=== PATIENT | female | born 1985 | race Two or more races ===

== ENCOUNTER 2017-10-14 18:46 | Emergency (ER) | payer OTHER ==
[2017-10-14] MEDS ORDERED: LORazepam 0.5 MG TABLET PO STA (19:12)
[2017-10-14] MEDS ORDERED: LORazepam 0.5 MG TABLET ONE (19:23)
[2017-10-14 19:53] VITALS: BP 134/81
--- NOTE | 2017-10-14 19:54 | ED Physician Documentation ---
History of Present Illness - Stated complaint Stated Complaint: neck pain - Chief complaint Chief Complaint: Heent - History obtained from History obtained from: Patient (pt is here for evaluation after she states she was laying on her stonach on the bed and felt a "pop" on the left side of her neck that she states was only slightly painful. she states that since then she has had a horse voice and a spike in her anxiety.) Review of Systems Constitutional: denies: Fever, Chills Ears: denies: Loss of hearing, Ear pain, Tinnitus/ringing Throat: reports: Other ("pop" on left side of throat). 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 HEENT: Other - Present Medications Home Medications: Ambulatory Orders Medication Instructions Recorded Confirmed Ibuprofen [Motrin] 400 mg PO Q6H PRN #30 tablet 05/11/16 10/14/17 raNITIdine HCl [Ranitidine HCl] 150 mg ORAL BID PRN 05/11/16 10/14/17 predniSONE [Prednisone] 60 mg PO DAILY #6 tablet 10/14/17 - Allergies Allergies/Adverse Reactions: Allergies Allergy/AdvReac Type Severity Reaction Status Date / Time Cephalosporins Allergy Itching Verified 10/14/17 18:56 ciprofloxacin [From Cipro] Allergy Unknown Verified 10/14/17 18:56 ciprofloxacin HCl * Allergy Unknown Verified 10/14/17 18:56 [From Cipro] phenazopyridine Allergy Unknown Verified 10/14/17 18:56 [Phenazopyridine] - Social History Does the pt smoke?: No Smoking Status: Former smoker Does the pt drink ETOH?: Yes Does the pt have substance abuse?: No - Immunizations Immunizations are current?: Yes - POLST Patient has POLST: No PD ED PE NORMAL - Vitals Vital signs reviewed: Yes - General General: Alert and oriented X 3, No acute distress, Well developed/nourished - HEENT HEENT: Atraumatic, Moist mucous membranes, Pharynx benign - Neck Neck: Supple, no meningeal sign, No bony TTP, No adenopathy, Thyroid normal, No JVD - Cardiac Cardiac: RRR - Respiratory Respiratory: No respiratory distress, Clear bilaterally - Derm Derm: Normal color, No rash - Neuro Neuro: Alert and oriented X 3 Eye Opening: Spontaneous Motor: Obeys Commands Verbal: Oriented GCS Score: 15 - Psych Psych: Normal mood. No: Normal affect (anxious) Results - Vitals Vitals: Vital Signs - 24 hr 10/14/17 10/14/17 18:53 19:52 Temperature 36.9 C 37.3 C Heart Rate 127 H 117 H Respiratory 16 18 Rate Blood Pressure 140/90 H 134/81 H O2 Saturation 98 96 Oxygen O2 Source Room air PD MEDICAL DECISION MAKING - ED course Complexity details: d/w patient ED course: Discussed case with Dr Corrales at [facility] who recommends steroids and to have the pt follow up tomorrow for an evaluation. considered vert artery injury but Dr corrales thought that since she had no other symptoms that this was less likely. Will hold on radiologic studies for now. Discussed with pt. first dose of steroids given in ER. pt will follow up tomorrow with PCm and ENT. Departure - Departure Disposition: 01 Home, Self Care Clinical Impression: Neck pain, Anxiety Condition: Good Follow-Up: [facility] [place] [Provider Group] Prescriptions: predniSONE [Prednisone] 60 mg PO DAILY #6 tablet Comments: [place] to help with the consults needed for you to go and see the ENT providers in [place]. I spoke with Dr corrales however he may not be the one in the office tomorrow. He stated just to tell the office staff that "Dr Francis" said that you needed to be seen. Return to the ER for any new or worsening symptoms.
[2017-10-14] MEDS ORDERED: predniSONE 20 MG TABLET PO STA (20:09)
[2017-10-14] MEDS ORDERED: predniSONE 20 MG TABLET ONE (20:23)
== END 2017-10-14 20:22 | disposition home or self-care (01) ==
LOC: ED 18:46
DX: M54.2 Cervicalgia (principal); F41.9 Anxiety disorder, unspecified; Z87.891 Personal history of nicotine dependence
CPT/HCPCS: 99283; A9270; J7512

== ENCOUNTER 2018-08-05 09:03 | Outpatient (CLI) | payer OTHER ==
--- NOTE | 2018-08-05 17:35 | MRI Report ---
Reason: BENIGN INTRACRANIAL HYPERTENSION Procedure Date: 08/05/2018 Accession Number: [id number] / [id number] Procedure: MRI - Brain W/O CPT Code: FULL RESULT: EXAM: MRI BRAIN WITHOUT CONTRAST EXAM DATE: 08/05/2018 09:51 AM. CLINICAL HISTORY: 33-year-old female. BENIGN INTRACRANIAL HYPERTENSION. COMPARISON: None. TECHNIQUE: Multiplanar, multisequence T1-weighted and fluid-sensitive MR sequences of the brain were performed. Sequences optimized for routine evaluation. Other: None. IV Contrast: None. FINDINGS: Brain Volume: Normal for age. Parenchyma/Dura: No mass, acute infarct or hemorrhage. No white matter lesions identified. No parenchymal foci susceptibility artifact. Ventricles/Cisterns: No hydrocephalus. No abnormal extra-axial fluid collection or hemorrhage. Orbits: Symmetric and unremarkable. The optic globes are unremarkable. The optic nerves bilaterally are unremarkable. The remaining orbital structures bilaterally are unremarkable. Sella Turcica: The pituitary gland, cavernous sinuses, suprasellar cistern and optic chiasm are unremarkable. IAC: Symmetric and unremarkable. Vasculature: Normal signal flow void is seen in the major arterial structures at the skull base. Sinuses: No acute appearing sinus disease. Bones: No focal pathologic appearing marrow signal changes. Other: Prominent upper cervical lymph nodes bilaterally (series 901 image 12), nonspecific. IMPRESSION: 1. No definite MRI findings of idiopathic intracranial hypertension. Specifically, the sella is not empty, the globes are not flattened, the optic nerve sheaths are not enlarged or tortuous, and the ventricles are not slitlike. 2. Overall unremarkable MRI examination of the brain. No white matter lesions. No MRI evidence of acute intracranial abnormality. Specifically, no evidence of acute or subacute infarct, acute intracranial hemorrhage, mass, midline shift, or hydrocephalus. RADIA
== END 2018-08-05 09:04 | disposition home or self-care (01) ==
LOC: DI 09:03
PROVIDERS: ATTEND Radiology Diagnostic Radiology
DX: G93.2 Benign intracranial hypertension (principal)
CPT/HCPCS: 70551

== ENCOUNTER 2018-08-06 10:39 | Outpatient (CLI) | payer OTHER ==
--- NOTE | 2018-08-06 19:44 | MRI Report ---
Reason: LUMBAGO WITH SCIATICA Procedure Date: 08/06/2018 Accession Number: [id number] / [id number] Procedure: MRI - Lumbar Spine W/O CPT Code: FULL RESULT: EXAM: MRI LUMBAR SPINE WITHOUT CONTRAST EXAM DATE: 08/06/2018 12:19 PM. CLINICAL HISTORY: Lumbago with sciatica. COMPARISON: LUMBAR SPINE 2 VIEW 05/11/2016 5:26 PM. TECHNIQUE: Multiplanar, multisequence T1-weighted and fluid-sensitive sequences of the lumbar spine from T12 to S1 without contrast. Other: None. FINDINGS: Spinal Canal: The conus terminates at L1. The conus medullaris and cauda equina are unremarkable. Alignment: No scoliosis or spondylolisthesis. Bone Marrow: Small 12th ribs on the comparison radiographs 05/11/2016 with 4 [id number] lumbar vertebrae or sacralization of L5. No gross fractures or bone lesions. No bone marrow replacement. Disk Levels/Facets: T12-L1: Unremarkable. L1-L2: Unremarkable. L2-L3: Unremarkable. L3-L4: Unremarkable. L4-L5: Moderate disk degeneration. Posterior 2-3 mm disk protrusion. Negative for spinal canal stenosis. Negative for foraminal stenosis. Facet joints are within normal limits. L5-S1: Hypoplastic disk interspace. Negative for spinal canal stenosis or foraminal stenosis. Musculature: Normal. No edema or fatty atrophy. Other: The partially visualized retroperitoneum is unremarkable. IMPRESSION: 1. Sacralization of L5. 2. Posterior central L4-L5 2-3 mm disk protrusion with mild ventral effacement of thecal sac without spinal stenosis, lateral recess stenosis or L5 nerve effacement. Comment: The following findings are so common in adults without low back pain that while we report their presence, they must be interpreted with caution and in the context of the clinical situation. (Reference Jamisonk et al, Spine 2001) Prevalence of findings in patients without low back pain: Disk degeneration (any evidence): 92% Disk desiccation/T2 signal loss: 83% Disk height loss: 56% Disk bulge: 64% Disk protrusion: 32% Annular tear/high intensity zone: 38% RADIA
== END 2018-08-06 10:40 | disposition home or self-care (01) ==
LOC: DI 10:39
PROVIDERS: ATTEND Radiology Diagnostic Radiology
DX: M51.26 Other intervertebral disc displacement, lumbar region (principal); M51.36 Other intervertebral disc degeneration, lumbar region; Q76.49 Other congenital malformations of spine, not associated with scoliosis
CPT/HCPCS: 72148

== ENCOUNTER 2019-01-09 12:47 | Emergency (ER) | payer OTHER ==
[2019-01-09 12:58] VITALS: BP 130/78
[2019-01-09] MEDS ORDERED: predniSONE 20 MG TABLET PO STA (13:21)
--- NOTE | 2019-01-09 13:23 | ED Physician Documentation ---
History of Present Illness - Stated complaint Stated Complaint: FACIAL SWELLING - Chief complaint Chief Complaint: General - History obtained from History obtained from: Patient - History of Present Illness Timing: Other (She is been sick for about a week with what sounds like a viral URI, she has had a nonproductive cough, scratchy throat and nasal congestion[place] strep and culture were negative as well as a flu swab. She was started on Tessalon yesterday and today she has painless right-sided facial swelling focused over the mandible. There is no dental pain. No possibility of and no fever at this point.) Review of Systems Constitutional: denies: Fever, Chills Ears: denies: Ear pain Nose: reports: Rhinorrhea / runny nose, Congestion Throat: reports: Sore throat Respiratory: reports: Cough. 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 HEENT: Other - Present Medications Home Medications: Ambulatory Orders Medication Instructions Recorded Confirmed Ibuprofen [Motrin] 400 mg PO Q6H PRN #30 tablet 05/11/16 10/14/17 raNITIdine HCl [Ranitidine HCl] 150 mg ORAL BID PRN 05/11/16 10/14/17 Benzonatate 100 mg PO 01/09/19 FLUoxetine [PROzac] 20 mg PO DAILY 01/09/19 01/09/19 Guaifenesin [Mucinex] 600 mg PO 01/09/19 guaiFENesin/CODEINE [Robitussin AC] 5 - 10 ml PO Q6H PRN #120 ml 01/09/19 predniSONE [Deltasone] 60 mg PO DAILY 5 Days tablet 01/09/19 - Allergies Allergies/Adverse Reactions: Allergies Allergy/AdvReac Type Severity Reaction Status Date / Time Cephalosporins Allergy Itching Verified 10/14/17 18:56 ciprofloxacin [From Cipro] Allergy Unknown Verified 10/14/17 18:56 ciprofloxacin HCl * Allergy Unknown Verified 10/14/17 18:56 [From Cipro] phenazopyridine Allergy Unknown Verified 10/14/17 18:56 [Phenazopyridine] - Social History Does the pt smoke?: No Smoking Status: Former smoker Does the pt drink ETOH?: Yes Does the pt have substance abuse?: No - Immunizations Immunizations are current?: Yes - POLST Patient has POLST: No PD ED PE NORMAL - Vitals Vital signs reviewed: Yes - General General: Alert and oriented X 3, No acute distress - HEENT HEENT: PERRL, EOMI, Other (She has very mild right sided external facial angioedema without obvious dental infection. There is no oropharyngeal angioedema, her oropharynx appears otherwise normal. Supple neck. No trismus.) - Neck Neck: Supple, no meningeal sign, No bony TTP - Cardiac Cardiac: RRR, No murmur - Respiratory Respiratory: No respiratory distress, Clear bilaterally - Abdomen Abdomen: Non tender - Neuro Neuro: Alert and oriented X 3, Normal speech - Psych Psych: Normal mood, Normal affect Results - Vitals Vitals: Vital Signs - 24 hr 01/09/19 12:55 Temperature 36.7 C Heart Rate 100 Respiratory 20 Rate Blood Pressure 130/78 O2 Saturation 100 Oxygen O2 Source Room air PD MEDICAL DECISION MAKING - ED course ED course: Could be a reaction to the Tessalon, the timing is right. Either way she will stop that and we will put her on steroids and codeine and she is to follow-up with her physician and return if worse. Departure - Departure Disposition: Home, Self Care Clinical Impression: Edema of face Condition: Good Record reviewed to determine appropriate education?: Yes Prescriptions: guaiFENesin/CODEINE [Robitussin AC] 5 - 10 ml PO Q6H PRN #120 ml PRN Reason: Cough predniSONE [Deltasone] 60 mg PO DAILY 5 Days tablet Comments: Return for new or worsening symptoms. Follow-up with your doctor on Sunday if not better.
== END 2019-01-09 14:00 | disposition home or self-care (01) ==
LOC: ED 12:47
DX: R60.0 Localized edema (principal); Z87.891 Personal history of nicotine dependence
CPT/HCPCS: 99283; J7512